=== PATIENT | male | born 1970 | race Caucasian/White ===

== ENCOUNTER 2017-12-24 10:46 | Emergency (ER) | payer OTHER ==
[~2017-12-24] VITALS: Ht 180.3 cm; Wt 117.9 kg
[~2017-12-24 10:46] MED LIST: ACETAMINOPHEN-1 EAC1 PO; AMOXICILLIN 50500 M1 PO; CEPHALEXIN 500500 M3 PO; HYDROCODONE-AP1 EAC6 PO; IBUPROFEN 800800 M1 PO; PROAIR HFA8.5 GM INH; PROMETHAZINE D480 ML PO; TESSALON PERLE100 MG PO
[2017-12-24] MEDS ORDERED: NAPROSYN500 MG PO (11:27)
[2017-12-24] MEDS ORDERED: MEDROLDOSEPACK PO (11:27)
[2017-12-24] MEDS ORDERED: ACETAMINOPHEN-1 EAC1 PO (11:27)
[2017-12-24] MEDS ORDERED: TRIAMCINOLONE A80 G2 TOP (11:29)
[2017-12-24 12:01] VITALS: BP 146/94
== END 2017-12-24 12:02 | disposition home or self-care (01) ==
LOC: M.ERS 10:46
DX: M54.31 Sciatica, right side (principal); I87.2 Venous insufficiency (chronic) (peripheral)

== ENCOUNTER 2018-09-14 01:27 | Emergency (ER) | payer OTHER ==
[~2018-09-14] VITALS: Ht 180.3 cm; Wt 104.3 kg
[~2018-09-14 01:27] MED LIST changes: +MEDROLDOSEPACK PO; +NAPROSYN500 MG PO; +TRIAMCINOLONE A80 G2 TOP
[2018-09-14] MEDS ORDERED: NORCO 7.5-3251 EACH PO (02:05)
[2018-09-14] MEDS ORDERED: HYDROCODON-ACE1 EAC8 PO (02:08)
[2018-09-14 02:17] VITALS: BP 154/87
== END 2018-09-14 02:18 | disposition home or self-care (01) ==
LOC: M.ERS 01:27
DX: S82.851A Displaced trimalleolar fracture of right lower leg, initial encounter for closed fracture (principal); X50.1XXA Overexertion from prolonged static or awkward postures, initial encounter; Y93.89 Activity, other specified; Y92.89 Other specified places as the place of occurrence of the external cause; Y99.8 Other external cause status

== ENCOUNTER 2019-07-24 00:23 | Emergency (ER) | payer OTHER ==
[~2019-07-24] VITALS: Ht 180.3 cm; Wt 108.9 kg
[~2019-07-24 00:23] MED LIST changes: +HYDROCODON-ACE1 EAC8 PO; +NORCO 7.5-3251 EACH PO
[2019-07-24] MEDS ORDERED: PERCOCET 7.5-31 EAC1 PO (01:48)
[2019-07-24 02:07] VITALS: BP 167/98
== END 2019-07-24 02:08 | disposition home or self-care (01) ==
LOC: M.ERS 00:23
DX: S92.421A Displaced fracture of distal phalanx of right great toe, initial encounter for closed fracture (principal); G40.909 Epilepsy, unspecified, not intractable, without status epilepticus; W20.8XXA Other cause of strike by thrown, projected or falling object, initial encounter; Y93.89 Activity, other specified; Y92.89 Other specified places as the place of occurrence of the external cause; Y99.8 Other external cause status